=== PATIENT | female | born 1955 | race Two or more races ===

== ENCOUNTER 2016-10-11 10:21 | Day surgery (SDC) | payer MEDICARE ==
[2016-10-11] MEDS ORDERED: SEVOFLURANE 250 ML BOTTLE IH ONE (10:22)
[2016-10-11] MEDS ORDERED: ONDANSETRON 4 MG/2 ML VIAL IV ONE (10:22)
[2016-10-11] MEDS ORDERED: CEFAZOLIN 1 G VIAL MC ONE (10:22)
[2016-10-11] MEDS ORDERED: DEXAMETHASONE SOD PHOSPHATE 4 MG INJ IV ONE (10:22)
[2016-10-11] MEDS ORDERED: PROPOFOL 200 MG/20 ML BOTTLE IV ONE (10:22)
[2016-10-11] MEDS ORDERED: IV NORMAL SALINE 1000 ML BAG IV ONE (10:22)
[2016-10-11] MEDS ORDERED: POLYMYXIN B SULFATE 500,000 UNITS, BACITRACIN 50,000 UNITS, NORMAL SALINE 20 ML MC ONE ×3 (13:45)
[2016-10-11] MEDS ORDERED: BUPIVACAINE PF 0.5% 30 ML VIAL ONE (13:55)
== END 2016-10-11 17:45 | disposition home or self-care (01) ==
LOC: DS 10:21
PROVIDERS: ATTEND Orthopaedic Surgery
DX: D17.79 Benign lipomatous neoplasm of other sites (principal); G56.00 Carpal tunnel syndrome, unspecified upper limb; E78.5 Hyperlipidemia, unspecified; M19.90 Unspecified osteoarthritis, unspecified site; E11.9 Type 2 diabetes mellitus without complications; I10 Essential (primary) hypertension; D69.6 Thrombocytopenia, unspecified
CPT/HCPCS: A4649; A4663; J0690; J1100; J2405; J3490; J7030